=== PATIENT | male | born 1940 | race Caucasian/White ===

== ENCOUNTER 2020-12-19 10:14 | Inpatient (IN) | payer OTHER ==
[~2020-12-19] VITALS: Ht 185.4 cm; Wt 101.6 kg
[2020-12-19 10:38] LABS: HEMOGLOBIN 14.2 gm/dl (14.0-17.5); RED BLOOD COUNT 5.06 M/UL (4.20-5.50); WHITE BLOOD COUNT 16.9 K/UL (4.5-11.0)
[2020-12-19 11:12] LABS: BUN/CREATININE RATIO 13 (0-10)
[2020-12-19] MEDS ORDERED: VENTOLIN HFA 66.7 GM INH (16:39)
[2020-12-19] MEDS ORDERED: ELIQUIS5 MG PO (16:40)
[2020-12-19] MEDS ORDERED: LIPITOR80 MG PO (16:41)
[2020-12-19] MEDS ORDERED: SYMBICORT 80-41 INHA INH (16:42)
[2020-12-19] MEDS ORDERED: VITAMIN D325 MCG PO (16:43)
[2020-12-19] MEDS ORDERED: CLOBETASOL 0.0560 G1 TOP (16:44)
[2020-12-19] MEDS ORDERED: CYMBALTA60 MG PO (16:45)
[2020-12-19] MEDS ORDERED: PLAVIX75 MG PO (16:45)
[2020-12-19] MEDS ORDERED: FERROUS SULFAT325 MG PO (16:46)
[2020-12-19] MEDS ORDERED: GABAPENTIN400 MG PO ×2 (16:47→16:55)
[2020-12-19] MEDS ORDERED: HYDROCODON-ACE1 EAC2 PO (16:51)
[2020-12-19] MEDS ORDERED: HYDROXYZINE HCL50 MG PO (16:53)
[2020-12-19] MEDS ORDERED: HUMULIN 70100 UNIT/1 SC (16:57)
[2020-12-19] MEDS ORDERED: HUMULIN 70100 UNIT/1 SQ (16:57)
[2020-12-19] MEDS ORDERED: PROTONIX40 MG PO (17:00)
[2020-12-19] MEDS ORDERED: PRINIVIL20 MG PO (17:00)
[2020-12-19] MEDS ORDERED: TOPROL XL25 MG PO (17:00)
[2020-12-19] MEDS ORDERED: TOPAMAX100 MG PO (17:02)
[2020-12-19] MEDS ORDERED: VITAMIN B-121000 MC3 PO (17:03)
[2020-12-20 04:31] LABS: WHITE BLOOD COUNT 13.2 K/UL (4.5-11.0)
[2020-12-20 04:34] LABS: HEMOGLOBIN 11.7 gm/dl (14.0-17.5); RED BLOOD COUNT 4.29 M/UL (4.20-5.50)
[2020-12-20 05:04] LABS: BUN/CREATININE RATIO 16 (0-10)
[2020-12-20 17:29] LABS: HEMOGLOBIN 9.8 gm/dl (14.0-17.5)
[2020-12-20 17:32] LABS: RED BLOOD COUNT 3.55 M/UL (4.20-5.50); WHITE BLOOD COUNT 22.4 K/UL (4.5-11.0)
[2020-12-20 18:33] LABS: HEMOGLOBIN 9.9 gm/dl (14.0-17.5); RED BLOOD COUNT 3.62 M/UL (4.20-5.50); WHITE BLOOD COUNT 24.6 K/UL (4.5-11.0)
--- NOTE | 2020-12-21 09:40 | NUR ---
NOTIFIED MD OF ELEVATED BS, CHANGE IS WAVE PATTEREN(PER TELE), AND PATIENT MENTAL STATUS (ALERT, EYES OPEN TO SOUND, WILL NOT OPEN MOUTH TO TAKE MEDS OR EAT, NOT VERBALLY RESPONDING WHEN SPOKEN TO) AWAITING NEW ORDERS.
[2020-12-21 11:25] LABS: HEMOGLOBIN 8.7 gm/dl (14.0-17.5); WHITE BLOOD COUNT 18.7 K/UL (4.5-11.0)
[2020-12-21 11:26] LABS: RED BLOOD COUNT 3.18 M/UL (4.20-5.50)
[2020-12-22 02:34] LABS: RED BLOOD COUNT 2.86 M/UL (4.20-5.50); WHITE BLOOD COUNT 23.8 K/UL (4.5-11.0)
[2020-12-23 04:15] LABS: HEMOGLOBIN 7.7 gm/dl (14.0-17.5); RED BLOOD COUNT 2.76 M/UL (4.20-5.50); WHITE BLOOD COUNT 15.4 K/UL (4.5-11.0)
[2020-12-23 04:34] LABS: BUN/CREATININE RATIO 33 (0-10)
[2020-12-24 03:11] LABS: HEMOGLOBIN 7.8 gm/dl (14.0-17.5); RED BLOOD COUNT 2.83 M/UL (4.20-5.50); WHITE BLOOD COUNT 13.8 K/UL (4.5-11.0)
[2020-12-24 03:29] LABS: BUN/CREATININE RATIO 32 (0-10)
[2020-12-26 05:32] LABS: HEMOGLOBIN 7.3 gm/dl (14.0-17.5); RED BLOOD COUNT 2.6 M/UL (4.20-5.50); WHITE BLOOD COUNT 15.8 K/UL (4.5-11.0)
[2020-12-26 05:51] LABS: BUN/CREATININE RATIO 17 (0-10)
[2020-12-26 15:49] LABS: HEMOGLOBIN 7.5 gm/dl (14.0-17.5)
[2020-12-27 03:05] LABS: HEMOGLOBIN 7.5 gm/dl (14.0-17.5); RED BLOOD COUNT 2.73 M/UL (4.20-5.50); WHITE BLOOD COUNT 17.1 K/UL (4.5-11.0)
--- NOTE | 2020-12-27 09:21 | NUR ---
blood sugar recheck 137.
[2020-12-28 10:31] LABS: HEMOGLOBIN 8.9 gm/dl (14.0-17.5); WHITE BLOOD COUNT 16.1 K/UL (4.5-11.0)
[2020-12-28 10:32] LABS: RED BLOOD COUNT 3.07 M/UL (4.20-5.50)
[2020-12-28 10:51] LABS: BUN/CREATININE RATIO 18 (0-10)
[2020-12-28] MEDS ORDERED: GABAPENTIN100 MG PO (12:11)
[2020-12-28] MEDS ORDERED: ELIQUIS 2.5 MG2.5 MG PO (12:11)
[2020-12-28] MEDS ORDERED: DULOXETINE HCL30 MG PO (12:11)
== END 2020-12-28 19:59 | DRG 481 ==
LOC: ER1 10:14 → CDU 13:27 → M/S 13:27 → MED SURG 4 14:33 → M/S 12-20 14:07
PROVIDERS: Internal Medicine; Orthopaedic Surgery; Physician Assistant; ADMIT Internal Medicine Infectious Disease
PROC: 30233N1 Transfusion of Nonautologous Red Blood Cells into Peripheral Vein, Percutaneous Approach (ICD-10-PCS; principal; 2020-12-19)
PROC: 0QS706Z Reposition Left Upper Femur with Intramedullary Internal Fixation Device, Open Approach (ICD-10-PCS; 2020-12-20)
PROC: B24BZZ4 Ultrasonography of Heart with Aorta, Transesophageal (ICD-10-PCS; 2020-12-20)
DX: S72.22XA Displaced subtrochanteric fracture of left femur, initial encounter for closed fracture (principal); D62 Acute posthemorrhagic anemia; E87.0 Hyperosmolality and hypernatremia; E87.2 Acidosis; N17.9 Acute kidney failure, unspecified; Z20.822 Contact with and (suspected) exposure to COVID-19; F03.90 Unspecified dementia, unspecified severity, without behavioral disturbance, psychotic disturbance, mood disturbance, and anxiety; I10 Essential (primary) hypertension; H91.90 Unspecified hearing loss, unspecified ear; E78.5 Hyperlipidemia, unspecified; M48.02 Spinal stenosis, cervical region; D72.829 Elevated white blood cell count, unspecified; R91.8 Other nonspecific abnormal finding of lung field; I48.91 Unspecified atrial fibrillation; E11.65 Type 2 diabetes mellitus with hyperglycemia; E66.9 Obesity, unspecified; R47.81 Slurred speech; I49.5 Sick sinus syndrome; Z96.659 Presence of unspecified artificial knee joint; Z83.3 Family history of diabetes mellitus; Z82.49 Family history of ischemic heart disease and other diseases of the circulatory system; W18.30XA Fall on same level, unspecified, initial encounter; Z79.01 Long term (current) use of anticoagulants; Z86.73 Personal history of transient ischemic attack (TIA), and cerebral infarction without residual deficits; Z95.0 Presence of cardiac pacemaker; Y93.9 Activity, unspecified; Y92.019 Unspecified place in single-family (private) house as the place of occurrence of the external cause; Z79.4 Long term (current) use of insulin; Z68.37 Body mass index [BMI] 37.0-37.9, adult
CPT/HCPCS: ECHO; 36415; 36430; 51702; 70450; 71045; 72125; 73502; 73552; 73560; 76000; 80048; 80053; 81001; 82550; 82553; 82962; 83036; 83874; 83880; 84484; 85014; 85018; 85025; 85027; 85610; 85730; 86850; 86900; 86901; 86920; 93005; 93306; 96374; 96375; 96376; 97110; 97110-GP-CQ; 97162; 97167; 97530-GP-CQ; 97535; 99285; C1713; J0690; J1100; J1170; J2001; J2270; J2370; J2405; J2704; J2710; J2795; J3010; J3370; J7030; J7120; P9016; U0002

== ENCOUNTER 2021-08-02 19:56 | Inpatient (IN) | payer OTHER ==
[~2021-08-02] VITALS: Ht 175.3 cm; Wt 89.8 kg
[~2021-08-02 19:56] MED LIST: CLOBETASOL 0.0560 G1 TOP; CYMBALTA60 MG PO; DULOXETINE HCL30 MG PO; ELIQUIS 2.5 MG2.5 MG PO; ELIQUIS5 MG PO; FERROUS SULFAT325 MG PO; GABAPENTIN100 MG PO; GABAPENTIN400 MG PO; HUMULIN 70100 UNIT/1 SQ; HYDROCODON-ACE1 EAC2 PO; HYDROXYZINE HCL50 MG PO; LIPITOR80 MG PO; LISINOPRIL10 MG PO; PLAVIX75 MG PO; PROAIR HFA8.5 GM INH; PROTONIX40 MG PO; SYMBICORT 80-41 INHA INH; TOPAMAX100 MG PO; TOPROL XL50 MG PO; VITAMIN B-121000 MC3 PO; VITAMIN D325 MCG PO
[2021-08-02 21:30] LABS: HEMOGLOBIN 12.2 gm/dl (14.0-17.5); RED BLOOD COUNT 4.53 M/UL (4.20-5.50); WHITE BLOOD COUNT 21.1 K/UL (4.5-11.0)
[2021-08-02 21:54] LABS: BUN/CREATININE RATIO 21 (0-10)
[2021-08-03 08:01] LABS: HEMOGLOBIN 13.3 gm/dl (14.0-17.5); RED BLOOD COUNT 4.85 M/UL (4.20-5.50)
[2021-08-03 08:03] LABS: WHITE BLOOD COUNT 40.4 K/UL (4.5-11.0)
[2021-08-03 09:22] LABS: BUN/CREATININE RATIO 24 (0-10)
[2021-08-03] MEDS ORDERED: ELIQUIS5 MG PO (11:29)
[2021-08-03] MEDS ORDERED: DULOXETINE HCL30 MG PO (11:30)
[2021-08-03] MEDS ORDERED: MIRTAZAPINE15 MG PO (11:34)
[2021-08-03] MEDS ORDERED: FOLIC ACID 1 MG1 MG PO (11:34)
[2021-08-03] MEDS ORDERED: ISOSORBIDE MONO30 MG PO (11:34)
[2021-08-03] MEDS ORDERED: DOCUSATE SODIU100 MG PO (11:35)
[2021-08-03] MEDS ORDERED: WIXELA 100-501 EACH INH (11:35)
[2021-08-03] MEDS ORDERED: VOLTAREN ARTHRI20 GM TOP (11:35)
[2021-08-03 12:28] LABS: BORDETELLA PARAPERTUSSIS Not Detected (Not Detectd); BORDETELLA PERTUSSIS Not Detected (Not Detectd); CHLAMYDIA PNEUMONIAE Not Detected (Not Detectd); CORONAVIRUS HKU1 Not Detected (Not Detectd); CORONAVIRUS NL63 Not Detected (Not Detectd); CORONAVIRUS OC43 Not Detected (Not Detectd); CORONOAVIRUS 229E Not Detected (Not Detectd); HUMAN METAPNEUMOVIRUS Not Detected (Not Detectd); HUMAN RHINOVIRUS/ENTEROVIRUS Not Detected (Not Detectd); INFLUENZA A Not Detected (Not Detectd); INFLUENZA B Not Detected (Not Detectd); MYCOPLASMA PNEUMONIAE Not Detected (Not Detectd); PARAINFLUENZA VIRUS 1 Not Detected (Not Detectd); PARAINFLUENZA VIRUS 2 Not Detected (Not Detectd); PARAINFLUENZA VIRUS 3 Not Detected (Not Detectd); PARAINFLUENZA VIRUS 4 Not Detected (Not Detectd); RESPIRATORY SYNCYTIAL VIRUS Not Detected (Not Detectd)
[2021-08-03 14:09] LABS: SARS-CoV-2 NOT DETECTED (Not Detectd)
[2021-08-04 06:57] LABS: HEMOGLOBIN 9.6 gm/dl (14.0-17.5); RED BLOOD COUNT 3.68 M/UL (4.20-5.50)
[2021-08-04 08:01] LABS: BUN/CREATININE RATIO 23 (0-10)
--- NOTE | 2021-08-04 12:04 | NUR ---
SPOKE WITH PATIENT'S FAMILY ABOUT PATIENT STATUS AND PLAN OF CARE.
[2021-08-05 06:35] LABS: HEMOGLOBIN 10.5 gm/dl (14.0-17.5); RED BLOOD COUNT 3.94 M/UL (4.20-5.50); WHITE BLOOD COUNT 14.2 K/UL (4.5-11.0)
[2021-08-05 07:01] LABS: BUN/CREATININE RATIO 18 (0-10)
[2021-08-06 04:58] LABS: HEMOGLOBIN 10.3 gm/dl (14.0-17.5); RED BLOOD COUNT 3.84 M/UL (4.20-5.50); WHITE BLOOD COUNT 13.3 K/UL (4.5-11.0)
[2021-08-06 05:11] LABS: BUN/CREATININE RATIO 14 (0-10)
[2021-08-06 16:10] LABS: ORGANISM ID Not indicated. (.); SPECIMEN SOURCE Urine (.); STREPTOCOCCUS PNEUMONIAE AG Negative (Negative)
[2021-08-07 06:32] LABS: HEMOGLOBIN 11.9 gm/dl (14.0-17.5)
[2021-08-07 06:33] LABS: RED BLOOD COUNT 4.53 M/UL (4.20-5.50); WHITE BLOOD COUNT 20.2 K/UL (4.5-11.0)
[2021-08-07 07:11] LABS: BUN/CREATININE RATIO 11 (0-10)
[2021-08-07 16:50] LABS: HEMOGLOBIN 10.7 gm/dl (14.0-17.5)
[2021-08-07 16:51] LABS: RED BLOOD COUNT 4.03 M/UL (4.20-5.50); WHITE BLOOD COUNT 15.1 K/UL (4.5-11.0)
[2021-08-08 07:25] LABS: HEMOGLOBIN 11.5 gm/dl (14.0-17.5); RED BLOOD COUNT 4.3 M/UL (4.20-5.50); WHITE BLOOD COUNT 13.8 K/UL (4.5-11.0)
[2021-08-08 07:54] LABS: BUN/CREATININE RATIO 18 (0-10)
[2021-08-09 08:04] LABS: HEMOGLOBIN 12.6 gm/dl (14.0-17.5); RED BLOOD COUNT 4.71 M/UL (4.20-5.50); WHITE BLOOD COUNT 14.8 K/UL (4.5-11.0)
[2021-08-09] MEDS ORDERED: AUGMENTIN 875-1 EACH PO (09:17)
[2021-08-09 09:30] LABS: BUN/CREATININE RATIO 20 (0-10)
== END 2021-08-09 17:22 | disposition home or self-care (01) | DRG 871 ==
LOC: ER1 19:56 → CDU 22:42 → MED SURG 4 22:42
PROVIDERS: Internal Medicine; Physician Assistant; ADMIT Internal Medicine
PROC: B24BZZZ Ultrasonography of Heart with Aorta (ICD-10-PCS; principal; 2021-08-03)
DX: A41.9 Sepsis, unspecified organism (principal); J96.21 Acute and chronic respiratory failure with hypoxia; J18.9 Pneumonia, unspecified organism; T83.518A Infection and inflammatory reaction due to other urinary catheter, initial encounter; R65.20 Severe sepsis without septic shock; F03.90 Unspecified dementia, unspecified severity, without behavioral disturbance, psychotic disturbance, mood disturbance, and anxiety; I48.91 Unspecified atrial fibrillation; I10 Essential (primary) hypertension; Z66 Do not resuscitate; E87.6 Hypokalemia; J44.9 Chronic obstructive pulmonary disease, unspecified; E11.649 Type 2 diabetes mellitus with hypoglycemia without coma; Z20.822 Contact with and (suspected) exposure to COVID-19; E78.5 Hyperlipidemia, unspecified; Z95.0 Presence of cardiac pacemaker; Z86.73 Personal history of transient ischemic attack (TIA), and cerebral infarction without residual deficits; Z99.81 Dependence on supplemental oxygen; Z79.01 Long term (current) use of anticoagulants; Z74.01 Bed confinement status; Y84.6 Urinary catheterization as the cause of abnormal reaction of the patient, or of later complication, without mention of misadventure at the time of the procedure
CPT/HCPCS: ECHO; 0240U; 36415; 36600; 70450; 71045; 71250; 80048; 80053; 81001; 82550; 82553; 82803; 82962; 83605; 83615; 83735; 83874; 83880; 84132; 84484; 85025; 85027; 87040; 87081; 87086; 87278; 87633; 87899; 93005; 93306; 94640; 94664; 94760; 96374; 96375; 99285; J0696; J1100; J2185; J3370; J7030; J7070